=== PATIENT | male | born 1995 | race African-American/Black ===

== ENCOUNTER 2019-07-16 19:20 | Emergency (ER) | payer OTHER ==
[~2019-07-16] VITALS: Ht 170.2 cm; Wt 74.8 kg
[2019-07-16 19:30] VITALS: BP 125/83
[2019-07-16] MEDS ORDERED: BENADRYL25 MG ORAL (19:42)
[2019-07-16] MEDS ORDERED: CEPHALEXIN500 M1 ORAL (19:42)
[2019-07-16] MEDS ORDERED: Cephalexin 500mg cap ORAL ONE (19:45)
--- NOTE | 2019-07-16 19:45 | Emergency Room Report ---
History of Present Illness General Chief Complaint: Animal Bite Source: Patient, Family Member - father Present Illness HPI Patient is a 23-year-old special-needs male brought in by his father for insect bite to his right forearm that occurred yesterday. Patient denies any pain or itchiness but father complains of some swelling and redness. Patient's father states that he has been placing ice on it. He denies any fever or chills. He denies any trauma. Allergies: Coded Allergies: FISH CONTAINING PRODUCTS (Verified Allergy, Unknown, 07/16/19) COVID-19 Screening Contact w/high risk pt: No Recent Travel to affected area: No Experienced COVID-19 symptoms?: No COVID-19 Testing performed [facility]: No Patient History Social History: Denies: smoking, alcohol use, drug use Reviewed Nursing Documentation: PMH: Agreed; PSxH: Agreed Nursing Documentation-PMH Past Medical History: No History, Except For Review of Systems All Other Systems: negative except mentioned in HPI Physical Exam Vital Signs Date Time Temp Pulse Resp B/P (MAP) Pulse Ox O2 Delivery O2 Flow Rate FiO2 07/16/19 19:30 98.6 73 18 125/83 (97) 97 Room Air Sp02 EP Interpretation: reviewed, normal General Appearance: no apparent distress, alert, GCS 15, non-toxic Head: normocephalic, atraumatic Eyes: bilateral eye normal inspection, bilateral eye PERRL ENT: hearing grossly normal, normal pharynx, no angioedema, normal voice Neck: full range of motion, supple/symm/no masses Respiratory: chest non-tender, lungs clear, normal breath sounds, speaking full sentences Cardiovascular #1: regular rate, rhythm, no edema Gastrointestinal: normal bowel sounds, non tender, soft, non-distended, no guarding, no rebound Rectal: deferred Genitourinary: normal inspection, no CVA tenderness Musculoskeletal: other - Right mid medial forearm erythema and slight edema with warmth to touch noticeable insect bite with no streaking or crepitus and no discharge Neurologic: alert, motor strength/tone normal, oriented x3, sensory intact, responsive, speech normal Lymphatic: no adenopathy Medical Decision Making ER Course After discussing with patient and his father the risks and benefits of further diagnostics, treatment plans, as well as indications for and risks of admission , the patient is agreeable to being discharged home. I have explained that their evaluation and treatment in the emergency department today is an important step towards them achieving better health but that their evaluation today is not intended to replace further evaluation and treatment by a physician in their local clinic. I have explained that while the current findings suggest no immediate life threatening emergency they will require further evaluation and treatment by a physician of their choice in their area. They understand that it will be necessary for them to review the final reports of their ED visit with their clinic physician. We have reviewed indications for return to the Emergency Department. I have explained that additional time may need to pass and/or additional testing as an outpatient may be necessary before a definitive diagnosis can be made. They tell me they are willing to follow up as instructed within the timeframe I recommend. They appear to understand what we discussed. Additionally they understand that if they are unable to be seen by an outpatient physician they are welcome, and in fact should, return to the Emergency Department for a repeat evaluation. The patient is stable at time of discharge. Last Vital Signs Date Time Temp Pulse Resp B/P (MAP) Pulse Ox O2 Delivery O2 Flow Rate FiO2 07/16/19 19:30 98.6 73 18 125/83 (97) 97 Room Air Disposition: HOME, SELF-CARE Condition: Stable Scripts Diphenhydramine Hcl* (BENADRYL*) 25 Mg Capsule 25 MG ORAL Q6H PRN for Itching, #20 CAP Prov: Michell Todd M.D. 07/16/19 Cephalexin* (KEFLEX*) 500 Mg Tablet 500 MG ORAL EVERY 8 HOURS for 7 Days, CAP Prov: Michell Todd M.D. 07/16/19 Referrals: [facility]. [facility] Patient Instructions: Insect Bite, [id number] Additional Instructions: The patient was provided with discharge instructions, notified to follow-up with a primary care doctor and or specialist in the next 24-48 hours, and to return to the ED if they have worsening of their symptoms. Please note that this report is being documented using [employer] technology. This can lead to erroneous entry secondary to incorrect interpretation by the dictating instrument. Michell Todd M.D. July 16, 2019 19:45
[2019-07-16 19:49] VITALS: BP 125/83
== END 2019-07-16 19:50 | disposition home or self-care (01) ==
LOC: EMR 19:40
DX: S50.861A Insect bite (nonvenomous) of right forearm, initial encounter (principal); W57.XXXA Bitten or stung by nonvenomous insect and other nonvenomous arthropods, initial encounter; Y93.9 Activity, unspecified; Y92.9 Unspecified place or not applicable; Z91.013 Allergy to seafood
CPT/HCPCS: 99282